=== PATIENT | male | born 1975 | race Caucasian/White ===

== ENCOUNTER 2016-05-03 16:35 | Emergency (ER) | payer OTHER ==
[2016-05-03 18:58] LABS: Basophils % (Auto) 0.9 % (0.0-1.8); Eosinophils % (Auto) 1.5 % (0.0-4.3); Hematocrit 44.1 % (35.5-45.6); Hemoglobin 14.7 gm/dl (11.8-15.2); Mean Corpuscular HGB Conc 34 % (32-34); Mean Corpuscular Hemoglobin 32 pg (28-32); Mean Corpuscular Volume 96 fl (84-94); Platelet Count 320 K/mm3 (140-440); Red Blood Count 4.59 M/mm3 (3.65-5.03); Red Cell Distribution Width 13.2 % (13.2-15.2); White Blood Count 9.8 K/mm3 (4.5-11.0)
[2016-05-03 19:10] LABS: Bilirubin,Urine NEG (Negative); Blood,Urine NEG (Negative); Ketones,Urine 20 mg/dL (Negative); Leukocyte Esterase,Urine NEG (Negative); Mucus,Urine FEW /HPF; Nitrite,Urine NEG (Negative); Protein,Urine <15 mg/dL mg/dL (Negative); Urobilinogen,Urine < 2.0 mg/dL (<2.0)
[2016-05-03 19:14] LABS: Anion Gap 24 mmol/L; B-Hydroxybutyrate 25.1 mg/dL (0.2-2.8); BUN/Creatinine Ratio 38.33; Blood Urea Nitrogen 23 mg/dL (9-20); Carbon Dioxide 23 mmol/L (22-30); Chloride 88.3 mmol/L (98-107); Glucose 484 mg/dL (75-100); Potassium 4.1 mmol/L (3.6-5.0); Sodium 131 mmol/L (137-145)
[2016-05-03] MEDS ORDERED: NACL 0.9% 1000 ML 1,000 ML IV ONE ×2 (20:29→21:46)
[2016-05-03] MEDS ORDERED: TORADOL IV ONE (20:48)
[2016-05-03 23:02] VITALS: BP 109/71
--- NOTE | 2016-05-03 23:22 | Emergency Department Report ---
ED General Adult HPI - General Chief complaint: Hyperglycemia Stated complaint: KNEE PAIN Time Seen by Provider: 05/03/16 20:28 Source: patient Mode of arrival: Ambulatory Limitations: No Limitations - History of Present Illness Initial comments: 41 yo male with a past medical history insulin-dependent diabetes presents to the hospital complains of bilateral leg pain and increased thirst. Patient states he was placed on insulin one year ago denies taking pills. He only takes his insulin when he feels a certain way and does not take it daily. Patient states he doesn't know what he supposed to be taking. He complains of pain to bilateral knees and also tingling and pain sensation to bilateral feet. Pain rated 8/ 10 in intensity and worsened movement. No reports of nausea, vomiting, abdominal pain, or fever. Severity scale (0 -10): 0 - Related Data Previous Rx's Medication Instructions Recorded Last Taken Type Blood-Glucose Meter [Relion 1 each MC PRN #1 kit 05/03/16 Unknown Rx All-in-One] Ibuprofen [Motrin] 400 mg PO Q8H PRN #30 tablet 05/03/16 Unknown Rx Insulin NPH Hum/Reg Insulin Hm 20 unit SQ BID 30 Days 05/03/16 Unknown Rx [Relion Novolin 70-30 Vial] traMADol [Ultram 50 MG tab] 50 mg PO Q6HR PRN #20 tablet 05/03/16 Unknown Rx Allergies Allergy/AdvReac Type Severity Reaction Status Date / Time No Known Allergies Allergy Unverified 05/03/16 18:16 ED Review of Systems ROS: Stated complaint: KNEE PAIN Other details as noted in HPI Comment: All other systems reviewed and negative Other: Constitutional: No fevers chills Eyes: No eye pain visual changes ENT: No ear pain or throat pain Neck: Denies pain Respiratory: Denies cough wheezing shortness of breath Cardiovascular: Denies chest pain, palpitations, syncope GI: Denies abdominal pain, nausea, vomiting, diarrhea : Denies dysuria Musculoskeletal: As per HPI Skin: Denies rash, lesions, erythema Neurologic: Denies headache, numbness, weakness Psychiatric: Denies suicidal ideation, hallucinations ED Past Medical Hx - Past Medical History Hx Diabetes: Yes - Surgical History Past Surgical History?: No - Social History Smoking Status: Former Smoker Substance Use Type: None - Medications Home Medications: Home Medications Medication Instructions Recorded Confirmed Last Taken Type Blood-Glucose Meter [Relion 1 each MC PRN #1 kit 05/03/16 Unknown Rx All-in-One] Ibuprofen [Motrin] 400 mg PO Q8H PRN #30 tablet 05/03/16 Unknown Rx Insulin NPH Hum/Reg Insulin Hm 20 unit SQ BID 30 Days 05/03/16 Unknown Rx [Relion Novolin 70-30 Vial] traMADol [Ultram 50 MG tab] 50 mg PO Q6HR PRN #20 tablet 05/03/16 Unknown Rx ED Physical Exam - General Limitations: No Limitations - Other Other exam information: General: No limitations, patient is alert in no acute distress Head exam: Atraumatic, normocephalic Eyes exam: Normal appearance, pupils equal reactive to light, extraocular movements intact ENT: Moist mucous membrane, normal oropharynx Neck exam: Normal inspection, full range of motion Respiratory exam: Clear to auscultation bilateral, no wheezes, rales, crackles Cardiovascular: Normal rate and rhythm, normal heart sounds Abdomen: Soft, nondistended, and nontender, with normal bowel sounds, no rebound, or guarding Extremity: Full range of motion normal inspection no deformity. Mild discomfort with bending knees Back: Normal Inspection, full range of motion, no tenderness Neurologic: Alert, oriented x3, cranial nerves intact, no motor or sensory deficit Psychiatric: normal affect, normal mood Skin: Warm, dry, intact ED Course Vital Signs 05/03/16 05/03/16 05/03/16 18:04 20:36 22:01 Temperature 98.7 F Pulse Rate 113 H 97 H Respiratory 20 20 18 Rate Blood Pressure 107/73 Blood Pressure 108/78 [Left] O2 Sat by Pulse 97 97 Oximetry 05/03/16 22:59 Temperature Pulse Rate 86 Respiratory 18 Rate Blood Pressure Blood Pressure 109/71 [Left] O2 Sat by Pulse 97 Oximetry - Reevaluation(s) Reevaluation #1: 05/03/16 23:22 Patient received regular insulin 8 units and 2 L of normal saline with reduction in blood glucose. Glucose was in the 300s in the ED prior to administrating IV treatment. Toradol order for pain ED Medical Decision Making - Lab Data Result diagrams: 05/03/16 18:40 05/03/16 18:40 Lab Results 05/03/16 05/03/16 05/03/16 Range/Units 18:11 18:30 18:40 WBC 9.8 (4.5-11.0) K/mm3 RBC 4.59 (3.65-5.03) M/mm3 Hgb 14.7 (11.8-15.2) gm/dl Hct 44.1 (35.5-45.6) % MCV 96 H (84-94) fl MCH 32 (28-32) pg MCHC 34 (32-34) % RDW 13.2 (13.2-15.2) % Plt Count 320 (140-440) K/mm3 Lymph % (Auto) 20.7 (13.4-35.0) % Butts % (Auto) 7.1 (0.0-7.3) % Eos % (Auto) 1.5 (0.0-4.3) % Baso % (Auto) 0.9 (0.0-1.8) % Lymph # 2.0 (1.2-5.4) K/mm3 Butts # 0.7 (0.0-0.8) K/mm3 Eos # 0.1 (0.0-0.4) K/mm3 Baso # 0.1 (0.0-0.1) K/mm3 Seg Neutrophils % 69.8 (40.0-70.0) % Seg Neutrophils # 6.8 (1.8-7.7) K/mm3 VBG pH (7.320-7.420) Sodium (137-145) mmol/L Potassium (3.6-5.0) mmol/L Chloride (98-107) mmol/L Carbon Dioxide (22-30) mmol/L Anion Gap mmol/L BUN (9-20) mg/dL Creatinine (0.8-1.5) mg/dL Estimated GFR ml/min BUN/Creatinine Ratio % Glucose (75-100) mg/dL POC Glucose 427 H (70-105) Calcium (8.4-10.2) mg/dL Urine Color Straw (Yellow) Urine Turbidity Clear (Clear) Urine pH 6.0 (5.0-7.0) Ur Specific [place] 1.030 (1.003-1.030) Urine Protein <15 mg/dl (Negative) mg/dL Urine Glucose (UA) >=500 (Negative) mg/dL Urine Ketones 20 (Negative) mg/dL Urine Blood Neg (Negative) Urine Nitrite Neg (Negative) Urine Bilirubin Neg (Negative) Urine Urobilinogen < 2.0 (<2.0) mg/dL Ur Leukocyte Esterase Neg (Negative) Urine WBC (Auto) 0.0 (0.0-6.0) /HPF Urine RBC (Auto) 3.0 (0.0-6.0) /HPF Urine Mucus Few /HPF Ketones (0.2-2.8) mg/dL 05/03/16 05/03/16 05/03/16 Range/Units 18:40 18:40 20:46 WBC (4.5-11.0) K/mm3 RBC (3.65-5.03) M/mm3 Hgb (11.8-15.2) gm/dl Hct (35.5-45.6) % MCV (84-94) fl MCH (28-32) pg MCHC (32-34) % RDW (13.2-15.2) % Plt Count (140-440) K/mm3 Lymph % (Auto) (13.4-35.0) % Butts % (Auto) (0.0-7.3) % Eos % (Auto) (0.0-4.3) % Baso % (Auto) (0.0-1.8) % Lymph # (1.2-5.4) K/mm3 Butts # (0.0-0.8) K/mm3 Eos # (0.0-0.4) K/mm3 Baso # (0.0-0.1) K/mm3 Seg Neutrophils % (40.0-70.0) % Seg Neutrophils # (1.8-7.7) K/mm3 VBG pH 7.404 (7.320-7.420) Sodium 131 L (137-145) mmol/L Potassium 4.1 (3.6-5.0) mmol/L Chloride 88.3 L (98-107) mmol/L Carbon Dioxide 23 (22-30) mmol/L Anion Gap 24 mmol/L BUN 23 H (9-20) mg/dL Creatinine 0.6 L (0.8-1.5) mg/dL Estimated GFR > 60 ml/min BUN/Creatinine Ratio 38.33 % Glucose 484 H (75-100) mg/dL POC Glucose 369 H (70-105) Calcium 9.0 (8.4-10.2) mg/dL Urine Color (Yellow) Urine Turbidity (Clear) Urine pH (5.0-7.0) Ur Specific [place] (1.003-1.030) Urine Protein (Negative) mg/dL Urine Glucose (UA) (Negative) mg/dL Urine Ketones (Negative) mg/dL Urine Blood (Negative) Urine Nitrite (Negative) Urine Bilirubin (Negative) Urine Urobilinogen (<2.0) mg/dL Ur Leukocyte Esterase (Negative) Urine WBC (Auto) (0.0-6.0) /HPF Urine RBC (Auto) (0.0-6.0) /HPF Urine Mucus /HPF Ketones 25.1 H (0.2-2.8) mg/dL 05/03/16 05/03/16 Range/Units 21:56 23:08 WBC (4.5-11.0) K/mm3 RBC (3.65-5.03) M/mm3 Hgb (11.8-15.2) gm/dl Hct (35.5-45.6) % MCV (84-94) fl MCH (28-32) pg MCHC (32-34) % RDW (13.2-15.2) % Plt Count (140-440) K/mm3 Lymph % (Auto) (13.4-35.0) % Butts % (Auto) (0.0-7.3) % Eos % (Auto) (0.0-4.3) % Baso % (Auto) (0.0-1.8) % Lymph # (1.2-5.4) K/mm3 Butts # (0.0-0.8) K/mm3 Eos # (0.0-0.4) K/mm3 Baso # (0.0-0.1) K/mm3 Seg Neutrophils % (40.0-70.0) % Seg Neutrophils # (1.8-7.7) K/mm3 VBG pH (7.320-7.420) Sodium (137-145) mmol/L Potassium (3.6-5.0) mmol/L Chloride (98-107) mmol/L Carbon Dioxide (22-30) mmol/L Anion Gap mmol/L BUN (9-20) mg/dL Creatinine (0.8-1.5) mg/dL Estimated GFR ml/min BUN/Creatinine Ratio % Glucose (75-100) mg/dL POC Glucose 217 H 208 H (70-105) Calcium (8.4-10.2) mg/dL Urine Color (Yellow) Urine Turbidity (Clear) Urine pH (5.0-7.0) Ur Specific [place] (1.003-1.030) Urine Protein (Negative) mg/dL Urine Glucose (UA) (Negative) mg/dL Urine Ketones (Negative) mg/dL Urine Blood (Negative) Urine Nitrite (Negative) Urine Bilirubin (Negative) Urine Urobilinogen (<2.0) mg/dL Ur Leukocyte Esterase (Negative) Urine WBC (Auto) (0.0-6.0) /HPF Urine RBC (Auto) (0.0-6.0) /HPF Urine Mucus /HPF Ketones (0.2-2.8) mg/dL - Medical Decision Making I suspect the patient has diabetic neuropathy so she will uncontrolled diabetes due to noncompliance. Patient has elevated ketones but does not have any signs of acidosis as indicated by normal bicarbonate venous pH. Patient also denies any GI symptoms or change in mental status. Hospitalist Dr. Cadet/Hosp consultation and recommends Relion ([employer]) 70/20 20units with breakfast and 20 units with dinner to start his diabetes treatment and to follow-up with a primary care doctor for further adjustments in diabetes medication. - Differential Diagnosis DKA, uncontrolled diabetes, noncompliance, neuropathy Critical Care Time: No Critical care attestation.: If time is entered above; I have spent that time in minutes in the direct care of this critically ill patient, excluding procedure time. ED Disposition Clinical Impression: Uncontrolled diabetes mellitus, Diabetic neuropathy, Noncompliance with medication regimen Disposition: DISCHARGED TO HOME OR SELFCARE Is pt being admited?: No Does the pt Need Aspirin: No Condition: Stable Instructions: Diabetes Mellitus Type 2 in Adults (ED), Diabetic Neuropathy (ED) Additional Instructions: Take the insulin as prescribed and continue to monitor your sugars. THe insulin Relion can be obtained for [employer] even without a prescription for further refills. You need further workup and evaluation by your primary care doctor for further insulin and medication adjustment. Please return if symptoms worsen as indicated by discharge instructions Prescriptions: Blood-Glucose Meter [Relion All-in-One] 1 each PRN #1 kit Ibuprofen [Motrin] 400 mg PO Q8H PRN #30 tablet PRN Reason: pain Insulin NPH Hum/Reg Insulin Hm [Relion Novolin 70-30 Vial] 20 unit SQ BID 30 Days traMADol [Ultram 50 MG tab] 50 mg PO Q6HR PRN #20 tablet PRN Reason: Pain Referrals: [facility] [Provider Group] - 3-5 Days [facility] [Outside] - 3-5 Days Time of Disposition: 23:53
== END 2016-05-04 00:09 | disposition home or self-care (01) ==
LOC: ED 16:35
DX: E11.40 Type 2 diabetes mellitus with diabetic neuropathy, unspecified (principal); Z91.14 Patient's other noncompliance with medication regimen; Z79.4 Long term (current) use of insulin; Z87.891 Personal history of nicotine dependence
CPT/HCPCS: 36415; 80048; 81001; 82010; 82805; 82962; 85025; 96361; 96374; 96375; 99283; J1885; J7030; J1815

== ENCOUNTER 2016-09-07 13:25 | Inpatient (IN) | payer OTHER ==
--- NOTE | 2016-09-07 15:12 | Emergency Department Report ---
Entered by STACIE PINZON, acting as scribe for KAE CULLEN NP. Chief Complaint: Chest Pain Stated Complaint: BP HIGH Time Seen by Provider: 09/07/16 15:02 - HPI History of Present Illness: Pt is non-toxic, non ill appearing, in no acute distress with c/o chest pain for 2 days. Describes CP has something stuck. Denies CP radiation. Pt denies abd pain, fever, chills, and n/v. Patient has mild SOB. Patient reports right foot tingling. - ROS Review of Systems: Reports chest pain, mild SOB, and right foot tingling. Denies nausea and vomiting. Denies abdominal pain. - Exam Vital Signs: Vital Signs 09/07/16 14:39 Temperature 97.5 F L Pulse Rate 95 H Respiratory 16 Rate Blood Pressure 94/65 O2 Sat by Pulse 99 Oximetry Physical Exam: Constitutional: Non toxic appearing, NAD. Cardiovascular: Normal rate and rhythm with normal S1/S2 sounds. Chest pain is not reproducible with palpation. No edema. Respiratory: No respiratory distress. Lung sounds clear to auscultation bilaterally. Abdomen: Abdomen is non-distended, soft with no tenderness to palpation in all quadrants. No abdominal bruit. No epigastric pain. MSE screening note: Focused history and physical exam performed. Due to findings the following was ordered: CBC, BMP, CCK, Troponin, Chest X-ray, EKG, and UA was ordered on patient. ED Disposition for MSE Condition: Stable This documentation as recorded by the scribe,STACIE PINZON,accurately reflects the service I personally performed and the decisions made by SUBHASH chisholm MARTIN, RHODA.
[2016-09-07 15:54] LABS: Basophils % (Auto) 0.4 % (0.0-1.8); Eosinophils % (Auto) 0.5 % (0.0-4.3); Hematocrit 41.6 % (35.5-45.6); Hemoglobin 13.9 gm/dl (11.8-15.2); Mean Corpuscular HGB Conc 34 % (32-34); Mean Corpuscular Hemoglobin 32 pg (28-32); Mean Corpuscular Volume 97 fl (84-94); Platelet Count 344 K/mm3 (140-440); Red Blood Count 4.32 M/mm3 (3.65-5.03); Red Cell Distribution Width 13.2 % (13.2-15.2); White Blood Count 9.2 K/mm3 (4.5-11.0)
[2016-09-07 16:02] LABS: Anion Gap 20 mmol/L; Blood Urea Nitrogen 9 mg/dL (9-20); Calcium 8.6 mg/dL (8.4-10.2); Carbon Dioxide 22 mmol/L (22-30); Chloride 92.3 mmol/L (98-107); Creatine Kinase 18 units/L (55-170); Potassium 3.3 mmol/L (3.6-5.0); Sodium 131 mmol/L (137-145)
--- NOTE | 2016-09-07 16:02 | XRay Report ---
ROUTINE CHEST, TWO VIEWS: HISTORY: chest pain. The trachea, heart, mediastinal contour, lung arteaga and bony thorax are unremarkable. IMPRESSION: Unremarkable chest x-ray.
[2016-09-07 16:04] LABS: Creatine Kinase MB < 1.0 ng/mL (0.0-4.0)
[2016-09-07 16:10] LABS: Glucose 557 mg/dL (75-100)
[2016-09-08] MEDS ORDERED: K-DUR PO ONE (07:10)
--- NOTE | 2016-09-08 07:10 | Emergency Department Report ---
ED Chest Pain HPI - General Chief Complaint: Chest Pain Stated Complaint: BP HIGH Time Seen by Provider: 09/08/16 06:45 Source: patient Mode of arrival: Ambulatory Limitations: No Limitations - History of Present Illness Initial Comments: 41-year-old male presents to the emergency department with complaint of a few days of midsternal nonradiating chest pressure. Sometimes he says it feels as if he is drinking something real fast and gets stuck. He has some mild nausea without vomiting and occasional shortness of breath. He denies any fever, back pain, diaphoresis. He has a past medical history of diabetes and says he used to be on insulin but recently his primary care physician stopped him off both insulin and any pills and he is not currently taking anything for his diabetes. No recent travel or sick contacts at home. He denies any tobacco abuse or illicit drug use. He denies any history of ME, CVA, PE/DVT. Severity scale (0 -10): 10 - Related Data Previous Rx's Medication Instructions Recorded Last Taken Type Blood-Glucose Meter [Relion 1 each MC PRN #1 kit 05/03/16 Unknown Rx All-in-One] Ibuprofen [Motrin] 400 mg PO Q8H PRN #30 tablet 05/03/16 Unknown Rx Insulin NPH Hum/Reg Insulin Hm 20 unit SQ BID 30 Days 05/03/16 Unknown Rx [Relion Novolin 70-30 Vial] traMADol [Ultram 50 MG tab] 50 mg PO Q6HR PRN #20 tablet 05/03/16 Unknown Rx Allergies Allergy/AdvReac Type Severity Reaction Status Date / Time No Known Allergies Allergy Unverified 05/03/16 18:16 Heart Score - HEART Score History: Moderately suspicious EKG: Normal Age: < 45 Risk factors: 1-2 risk factors Troponin: < normal limit HEART Score: 2 - Critical Actions Critical Actions: 0-3 pts:0.9-1.7%risk of adverse cardiac event.Candidate for discharge ED Review of Systems ROS: Stated complaint: BP HIGH Other details as noted in HPI Comment: All other systems reviewed and negative Constitutional: denies: chills, fever Eyes: denies: eye pain, eye discharge, vision change ENT: denies: ear pain, throat pain Respiratory: shortness of breath. denies: cough Cardiovascular: chest pain. denies: palpitations Gastrointestinal: nausea. denies: abdominal pain, vomiting Genitourinary: denies: urgency, dysuria Musculoskeletal: denies: back pain, joint swelling, arthralgia Skin: denies: rash, lesions Neurological: denies: headache, weakness, paresthesias ED Past Medical Hx - Past Medical History Previous Medical History?: Yes Hx Diabetes: Yes - Surgical History Past Surgical History?: No - Social History Smoking Status: Never Smoker Substance Use Type: None - Medications Home Medications: Home Medications Medication Instructions Recorded Confirmed Last Taken Type Blood-Glucose Meter [Relion 1 each MC PRN #1 kit 05/03/16 Unknown Rx All-in-One] Ibuprofen [Motrin] 400 mg PO Q8H PRN #30 tablet 05/03/16 Unknown Rx Insulin NPH Hum/Reg Insulin Hm 20 unit SQ BID 30 Days 05/03/16 Unknown Rx [Relion Novolin 70-30 Vial] traMADol [Ultram 50 MG tab] 50 mg PO Q6HR PRN #20 tablet 05/03/16 Unknown Rx ED Physical Exam - General Limitations: No Limitations - Other Other exam information: GENERAL: Patient is awake and alert. Very thin or cachectic appearance. HEENT: Normocephalic. Atraumatic. Extraocular motions are intact. Patient has moist mucous membranes. Pupils equal reactive to light bilaterally. NECK: Supple. Trachea is midline. CHEST/LUNGS: Clear to auscultation. There is no respiratory distress noted. Chest pain is not reproducible to palpation of chest wall. HEART/CARDIOVASCULAR: Regular. There is no tachycardia. There is no gallop rub or murmur. ABDOMEN: Abdomen is soft, nontender. Patient has normal bowel sounds. There is no abdominal distention. SKIN: Skin is warm and dry. NEURO: The patient is awake, alert, and oriented. The patient is cooperative. The patient has no focal neurologic deficits. The patient has normal speech. MUSCULOSKELETAL: There is no tenderness or deformity. There is no limitation range of motion. There is no evidence of acute injury. ED Course Vital Signs 09/07/16 09/08/16 09/08/16 14:39 02:53 07:26 Temperature 97.5 F L 97.6 F Pulse Rate 95 H 88 Respiratory 16 18 Rate Blood Pressure 94/65 107/74 Blood Pressure [Left] O2 Sat by Pulse 99 99 100 Oximetry 09/08/16 09/08/1617 07:31 07:33 07:35 Temperature Pulse Rate 84 83 85 Respiratory 12 15 13 Rate Blood Pressure 107/70 Blood Pressure [Left] O2 Sat by Pulse 99 99 98 Oximetry 09/08/16 09/08/16 07:45 07:46 Temperature Pulse Rate 83 Respiratory 18 18 Rate Blood Pressure Blood Pressure 107/70 [Left] O2 Sat by Pulse 99 99 Oximetry LEE score - Lee Score Age > 65: (0) No Aspirin use within the Past 7 Days: (0) No 3 or more CAD Risk Factors: (1) Yes 2 or more Angina events in past 24 hrs: (1) Yes Known CAD with more than 50% Stenosis: (0) No Elevated Cardiac Markers: (0) No ST Deviation Greater than 0.5mm: (0) No LEE Score: 2 ED Medical Decision Making - Lab Data Result diagrams: 09/07/16 15:17 09/07/16 15:17 - EKG Data -: EKG Interpreted by Me EKG shows normal: sinus rhythm, axis, intervals, QRS complexes, ST-T waves Rate: normal - EKG Data When compared to previous EKG there are: previous EKG unavailable Interpretation: normal EKG - Radiology Data Radiology results: image reviewed interpreted by me: Chest x-ray did not show any acute process. Heart is normal shape and size. No effusions. No pneumothorax. No signs of pneumonia seen. - Medical Decision Making 41-year-old male presents with a few days of midsternal chest pain. He also presents with very elevated blood sugar with a level of about 550. This may be secondary to the fact that he was recently stopped from his diabetes medications. He does not appear to be in diabetic ketoacidosis or HHNK. He was given IV insulin to bring it down. So far is negative troponins 2 and a negative d-dimer. However with his uncontrolled diabetes and his comorbidities and the fact that he has not had a full cardiac workup or stress test ever, the patient will be admitted to the hospital for further evaluation and treatment. He has been accepted for admission by the hospitalist service and the nurse practitioner, Vivien. - Differential Diagnosis DKA, HHNK, ME, PE, pneumonia Critical Care Time: No Critical care attestation.: If time is entered above; I have spent that time in minutes in the direct care of this critically ill patient, excluding procedure time. ED Disposition Clinical Impression: Hyperglycemia, Hypokalemia Uncontrolled diabetes mellitus Qualifiers: Diabetes mellitus type: type 1 Diabetes mellitus complication status: with hyperglycemia Qualified Code(s): E10.65 - Type 1 diabetes mellitus with hyperglycemia Chest pain Qualifiers: Chest pain type: unspecified Qualified Code(s): R07.9 - Chest pain, unspecified Disposition: OP ADMIT IP TO THIS HOSP Is pt being admited?: Yes Does the pt Need Aspirin: Yes Condition: Stable Instructions: Diabetes Mellitus Type 2 in Adults (ED), Chest Pain (ED) Referrals: PRIMARY CARE, [Primary Care Provider] - 3-5 Days Time of Disposition: 08:55
[2016-09-08 08:10] LABS: Bilirubin,Urine NEG (Negative); Blood,Urine NEG (Negative); Ketones,Urine 20 mg/dL (Negative); Leukocyte Esterase,Urine NEG (Negative); Mucus,Urine FEW /HPF; Nitrite,Urine NEG (Negative); Protein,Urine <15 mg/dL mg/dL (Negative); Urobilinogen,Urine < 2.0 mg/dL (<2.0); WBC,Urine < 1.0 /HPF (0.0-6.0)
[2016-09-08 08:18] LABS: RBC,Urine < 1.0 /HPF (0.0-6.0)
[2016-09-08] MEDS ORDERED: DULCOLAX PR PRN (08:52)
[2016-09-08] MEDS ORDERED: MILK OF MAGNESIA PO PRN (08:52)
[2016-09-08] MEDS ORDERED: D50W (25GM) IV PRN (08:52)
[2016-09-08] MEDS ORDERED: TYLENOL PO PRN (08:52)
[2016-09-08] MEDS ORDERED: ZOFRAN IV PRN (08:52)
[2016-09-08] MEDS ORDERED: BABY ASPIRIN PO ONE (08:55)
--- NOTE | 2016-09-08 08:57 | Admit Criteria Form ---
Admission Criteria Documentation: DIABETES Clinical Indications for Admission to Inpatient Care (Place 'X' for any and all applicable criteria): Admission is indicated by presence of ALL (if I & II) or ANY ONE (if III or IV) of the following (1)(2)(3)(4): [X]I. Diabetes is uncontrolled as indicated by ANY ONE of the following: [ ]a) Diabetic ketoacidosis as indicated by ALL of the following (8): [ ]i) Hyperglycemia (eg, plasma glucose greater than 200 mg/ dL (11.1 mmol/L)) [ ]ii) Acidosis (eg, arterial pH less than 7.30, serum bicarbonate level less than 15 mEq/L (mmol/L)) [ ]iii) Moderate ketonuria or ketonemia [ ]b) Hyperglycemic hyperosmolar state as indicated by ALL of the following(9)(10): [ ]i) Neurologic dysfunction (eg, stupor, coma, hemiparesis , seizure)(13) [ ]ii) Plasma glucose greater than 600 mg/dL (33.3 mmol/L) [ ]iii) Serum osmolality greater than 320 mOsm/kg (mmol/kg) [X]c) Severe signs or symptoms secondary to hyperglycemia indicated by ANY ONE of the following: [ ]i) Altered mental status(10) [ ]ii) Significant hypovolemia or dehydration [ ]iii) Intractable nausea or vomiting [ ]iv) Unexplained fever or severe infection [X]v) Severe electrolyte abnormality (eg, hypokalemia, hyperkalemia, hypernatremia) [ ]II. Management at other levels of care (Also use Diabetes: Observation Care as appropriate) is not feasible because of ANY ONE of the following: [ ]a) Condition was not adequately corrected with treatment at other levels of care. [ ]b) Treatment at other levels of care is not appropriate because of condition severity (eg, hyperosmolar coma). [ ]III. Contraindications and/or Inappropriate clinical situations for Observational Care in patients with Diabetes, when ANY ONE of the following is required: [ ]a) Patient require specific diagnostic workup or therapeutic intervention 22 [ ]b) Patient with abnormal vital signs or altered mental status 23 [ ]IV. General contraindications and/or Inappropriate clinical situations for Observational Care in patients with Diabetes, when ANY ONE of the following is required: [ ]a) Prediction of prolongation of LOS based on ANY ONE of the following may be considered as a contraindication for observational care 2, 3, 4, 5, 6, 7, 8, 9, 10, 11 [ ]i) Age > 65 yrs. [ ]ii) Patient arriving by ambulance [ ]iii) Patient with high acuity [ ]iv) Patient requiring vital sign monitoring [ ]v) Patient on IV medication [ ]b) Systolic blood pressures 180mmHg 3,12 [ ]c) Patient with altered mental status including delirium and other alteration of consciousness, (3) [ ]d) Patient whose discharge disposition will be to a senior care home or rehabilitation home should not be managed in Emergency Department Observation Unit. CMS rule requires 3 days hospital stay before such placement.3,13 [ ]e) Patient with failure to thrive due to broad array of etiologies 3,16,17 [ ]f) Inability to ambulate 3,14 Extended stay beyond goal length of stay may be needed for(3)(20): [ ]a) Treatment of precipitating causes [ ]b) Development of hypoglycemia [ ]c) Complications of treatment [ ]d) Complications of decompensated diabetes (eg, acute gastric dilatation, persistent metabolic or neurologic derangement) [ ]e) Active Comorbidities [ ]f) Older patients( 65 years or older) The original [employer] content created by [employer] has been revised. The portions of the content which have been revised are identified through the use of italic text or in bold,and [facility] has neither reviewed nor approved the modified material. All other unmodified content is copyright [facility] [facility]. Please see references footnoted in the original [employer] [facility] [employer] edition 2016 Admission Criteria Met: Yes
--- NOTE | 2016-09-08 09:09 | History and Physical Report ---
History of Present Illness Date of examination: 09/08/16 Date of admission: 09/08/16 Chief complaint: Chest pains and Hyperglycemia History of present illness: A 41-year-old male presented to the ED from home with complaint of chest pain. Patient reported that symptoms started about a week ago, off and on, and got worse yesterday with chest tightness. Pt described the pain as something stuck on his chest and rate it 8 out of 10 on a scale of 0/10. Patient denies fever , nausea, vomiting, abdomen pain, syncopal, diarrhea, constipation. Patient also complained of having weakness to his lower extremities and tingling and burning to his feet since he was diagnosed with diabetes. Patient stated his only past medical history is diabetes and no surgeries. She also denies tobacco and alcohol use Past History Past Medical History: diabetes. denies: hypertension Past Surgical History: No surgical history Social history: single, Lives alone, full code. denies: smoking, alcohol abuse , prescription drug abuse, IV drug use Family history: diabetes, hypertension Medications and Allergies Allergies Allergy/AdvReac Type Severity Reaction Status Date / Time No Known Allergies Allergy Unverified 05/03/16 18:16 Home Medications Medication Instructions Recorded Confirmed Last Taken Type No Known Home Medications [No 09/08/16 09/08/16 Unknown History Reported Home Medications] Active Meds: Active Medications Acetaminophen (Tylenol) 650 mg PO Q4H PRN PRN Reason: Pain MILD(1-3)/Fever >100.5/POLLOCK Bisacodyl (Dulcolax) 10 mg [place] QDAY PRN PRN Reason: Constipation unrelieved by MOM Dextrose (D50w (25gm)) 50 ml IV PRN PRN PRN Reason: Hypoglycemia Sodium Chloride (Nacl 0.9% 1000 Ml) 1,000 mls @ 100 mls/hr IV DIRECT SHANNAN Magnesium Hydroxide (Milk Of Magnesia) 30 ml PO Q4H PRN PRN Reason: Constipation Ondansetron HCl (Zofran) 4 mg IV Q4H PRN PRN Reason: Nausea And Vomiting Review of Systems Constitutional: weight loss, no weight gain, no fever, no chills, no sweats Ears, nose, mouth and throat: no nasal congestion, no nasal discharge Cardiovascular: chest pain, no palpitations, no lightheadedness, no shortness of breath Respiratory: no cough with sputum, no congestion, no wheezing Gastrointestinal: no abdominal pain, no nausea, no vomiting, no diarrhea, no constipation Genitourinary Male: no dysuria, no hematuria Rectal: no incontinence Musculoskeletal: no neck pain, no low back pain Integumentary: no rash, no lesions Neurological: no head injury, no seizures, no syncope Psychiatric: no anxiety, no suicidal ideation, no depression Endocrine: polydipsia, polyuria, no fatigue Exam - Constitutional Vitals: Temp Pulse Resp BP Pulse Ox 97.6 F 83 18 107/70 99 09/08/16 02:53 09/08/16 07:45 09/08/16 07:46 09/08/16 07:45 09/08/16 07:46 General appearance: Present: no acute distress, well-nourished - EENT Eyes: Present: PERRL ENT: hearing intact, clear oral mucosa - Neck Neck: Present: supple, normal ROM - Respiratory Respiratory effort: normal Respiratory: bilateral: CTA - Cardiovascular Rhythm: regular Heart Sounds: Present: S1 & S2. Absent: rub, click - Extremities Extremities: pulses symmetrical, No edema Peripheral Pulses: within normal limits - Abdominal General gastrointestinal: Present: soft, non-tender, non-distended, normal bowel sounds Male genitourinary: Present: normal - Integumentary Integumentary: Present: clear, warm, dry - Musculoskeletal Musculoskeletal: gait normal, strength equal bilaterally - Psychiatric Psychiatric: appropriate mood/affect, intact judgment & insight - Neurologic Neurologic: CNII-XII intact, moves all extremities - Allied Health Allied health notes reviewed: nursing Results - Labs CBC & Chem 7: 09/07/16 15:17 09/07/16 15:17 Labs: Abnormal lab results 09/07/16 09/07/16 09/07/16 Range/Units 07:25 15:17 15:17 MCV 97 H (84-94) fl Seg Neutrophils % 76.9 H (40.0-70.0) % VBG pH (7.320-7.420) Sodium 131 L (137-145) mmol/L Potassium 3.3 L (3.6-5.0) mmol/L Chloride 92.3 L (98-107) mmol/L Creatinine 0.4 L (0.8-1.5) mg/dL Glucose 557 H* (75-100) mg/dL POC Glucose (70-105) Total Creatine Kinase 18 L (55-170) units/L CK-MB (CK-2) Rel Index 5.5 H (0-4) Ur Specific [place] 1.033 H (1.003-1.030) 09/08/16 09/08/16 Range/Units 07:12 Unknown MCV (84-94) fl Seg Neutrophils % (40.0-70.0) % VBG pH 7.451 H (7.320-7.420) Sodium (137-145) mmol/L Potassium (3.6-5.0) mmol/L Chloride (98-107) mmol/L Creatinine (0.8-1.5) mg/dL Glucose (75-100) mg/dL POC Glucose 397 H (70-105) Total Creatine Kinase (55-170) units/L CK-MB (CK-2) Rel Index (0-4) Ur Specific [place] (1.003-1.030) - Imaging and Cardiology Chest x-ray: image reviewed (Showed clear lungs) Assessment and Plan A 41-year-old male presented to the ED from home with complaint of chest pain. Patient reported that symptoms started about a week ago, off and on, and got worse yesterday with chest tightness. Pt described the pain as something stuck on his chest and rate it 8 out of 10 on a scale of 0/10. Patient denies fever , nausea, vomiting, abdomen pain, syncopal, diarrhea, constipation. Patient also complained of having weakness to his lower extremities and tingling and burning to his feet since he was diagnosed with diabetes. Patient stated his only past medical history is diabetes and no surgeries. She also denies tobacco and alcohol use. -chest pain- rule out acute coronary syndrome Serial cardiac enzymes and EKG , Lexiscan stress test echocardiogram for left ventricular function and ejection fraction , cardiology evaluation as needed Aspirin and beta blockers GILDARDO inhibitor as nitrates and statins , supportive care -DM 2-hyperosmolar nonketotic state , patient has no history of diabetes mellitus , Accu-Chek sliding scale coverage and ADA diet and insulin Check hemoglobin A1c , IV fluids , diabetic education and nutrition consult Possible diabetic nurse at the time of discharge -Diabetic neuropathy-Neurontin ordered, supportive care --Hypokalemia ;replenish per protocol and monitor levels --Moderate to severe protein calorie malnutrition Supportive care nutrition supplements --DVT prophylaxis with Lovenox
[2016-09-08] MEDS ORDERED: LEXISCAN IV ONE ×2 (10:52→10:57)
--- NOTE | 2016-09-08 12:34 | Consultation ---
History of Present Illness Consult date: 09/08/16 Requesting physician: ROSSI JARAMILLO Consult reason: chest pain History of present illness: The patient is a 41 year old male with a history of diabetes who presented with persistent substernal chest pain ongoing for the past several weeks. He states the pain is worse after eating or drinking and feels like something is getting stuck in his chest. He denies any shortness of breath, palpitations, nausea, vomiting or diaphoresis. Troponin negative x 2. Hgb A1C 14.6. Lexiscan thallium stress test done this morning was negative for ischemia but did show transient ischemic dilatation (ratio 1.28). Past History Past Medical History: diabetes Past Surgical History: No surgical history Social history: single, Lives alone, full code. denies: smoking, alcohol abuse , prescription drug abuse, IV drug use Family history: diabetes, hypertension Medications and Allergies Allergies Allergy/AdvReac Type Severity Reaction Status Date / Time No Known Allergies Allergy Unverified 05/03/16 18:16 Home Medications Medication Instructions Recorded Confirmed Last Taken Type No Known Home Medications [No 09/08/16 09/08/16 Unknown History Reported Home Medications] Active Meds: Active Medications Acetaminophen (Tylenol) 650 mg PO Q4H PRN PRN Reason: Pain MILD(1-3)/Fever >100.5/POLLOCK Bisacodyl (Dulcolax) 10 mg [place] QDAY PRN PRN Reason: Constipation unrelieved by MOM Dextrose (D50w (25gm)) 50 ml IV PRN PRN PRN Reason: Hypoglycemia Sodium Chloride (Nacl 0.9% 1000 Ml) 1,000 mls @ 100 mls/hr IV DIRECT SHANNAN Insulin Human Isoph/Insulin Regular (Novolin 70/30) 8 unit SUB-Q BIDDIAB SHANNAN Magnesium Hydroxide (Milk Of Magnesia) 30 ml PO Q4H PRN PRN Reason: Constipation Ondansetron HCl (Zofran) 4 mg IV Q4H PRN PRN Reason: Nausea And Vomiting Review of Systems Constitutional: no fever, no chills Ears, nose, mouth and throat: no nasal congestion, no nasal discharge, no sinus pressure Cardiovascular: chest pain, no palpitations Respiratory: no cough, no congestion, no wheezing Gastrointestinal: no nausea, no vomiting, no diarrhea Genitourinary Male: no dysuria, no hematuria Musculoskeletal: other (leg pain), no neck stiffness, no neck pain Integumentary: no rash, no pruritis Neurological: no headaches, no change in speech, no change in mentation Endocrine: no cold intolerance, no heat intolerance Hematologic/Lymphatic: no easy bruising, no easy bleeding Allergic/Immunologic: no urticaria, no wheezing Physical Examination Vital Signs Temp Pulse Resp BP Pulse Ox 97.5 F L 95 H 16 94/65 99 09/07/16 14:39 09/07/16 14:39 09/07/16 14:39 09/07/16 14:39 09/07/16 14:39 General appearance: no acute distress, cachectic HEENT: Positive: Normocephaly, Mucus Membranes Moist Neck: Positive: neck supple, trachea midline Cardiac: Positive: Reg Rate and Rhythm, S1/S2 Lungs: Positive: clear to auscultation Neuro: Positive: Grossly Intact Abdomen: Positive: Soft, Active Bowel Sounds. Negative: Tender Skin: Positive: Clear. Negative: Rash Extremities: Present: normal. Absent: edema Results 09/07/16 15:17 09/07/16 15:17 Lipids 09/08/16 Range/Units 09:05 Triglycerides 77 (2-149) mg/dL Cholesterol 125 (50-199) mg/dL HDL Cholesterol 32 L (40-59) mg/dL Cholesterol/HDL Ratio 3.90 % - Imaging and Cardiology Echo: pending EKG: image reviewed EKG interpretations - Telemetry EKG Rhythm: Sinus Rhythm - EKG Sinus rhythms and dysrhythmias: sinus rhythm Assessment and Plan Atypical chest pain Troponin negative x 2 No acute EKG changes Stress MPI today: no ischemia, EF 68%, TID (ratio 1.28) Await echo findings Uncontrolled diabetes Management per primary Stress MPI today showed no ischemia, EF 68%, TID (ratio 1.28). Will obtain echocardiogram. Further recommendations to follow. The patient has been seen in conjunction with Dr. Shaw who agrees with the assessment and plan of care. Thank you Dr. Jaramillo for allowing us to participate in the care of this patient.
[2016-09-08] MEDS: NACL 0.9% 1000 ML 1,000 ML IV SCH (17:33)
[2016-09-08] MEDS: NOVOLOG SUB-Q SCH (21:45)
[2016-09-09] MEDS: NACL 0.9% 1000 ML 1,000 ML IV SCH ×2 (05:42→17:54)
[2016-09-09 06:32] LABS: Basophils % (Auto) 0.6 % (0.0-1.8); Eosinophils % (Auto) 1.4 % (0.0-4.3); Mean Corpuscular HGB Conc 34 % (32-34); Mean Corpuscular Hemoglobin 32 pg (28-32); Mean Corpuscular Volume 95 fl (84-94); Platelet Count 332 K/mm3 (140-440); Red Cell Distribution Width 13.6 % (13.2-15.2); White Blood Count 9.5 K/mm3 (4.5-11.0)
[2016-09-09 06:43] LABS: Anion Gap 15 mmol/L; BUN/Creatinine Ratio 36.66; Blood Urea Nitrogen 11 mg/dL (9-20); Calcium 7.9 mg/dL (8.4-10.2); Carbon Dioxide 24 mmol/L (22-30); Chloride 101.8 mmol/L (98-107); Glucose 271 mg/dL (75-100); Potassium 3.1 mmol/L (3.6-5.0); Sodium 138 mmol/L (137-145)
--- NOTE | 2016-09-09 07:52 | Progress Note ---
Assessment and Plan Assessment and plan: --chest pain- rule out acute coronary syndrome Lexiscan stress test negative for reversible ischemia ,echocardiogram for left ventricular function and ejection fraction , continue current cardiac medications --DM 2-hyperosmolar nonketotic state , patient has no history of diabetes mellitus , Accu-Chek sliding scale coverage and ADA diet and insulin Check hemoglobin A1c , IV fluids , diabetic education and nutrition consult Possible diabetic nurse at the time of discharge --Diabetic neuropathy-Neurontin ordered, supportive care --Hypokalemia ;replenish per protocol and monitor levels --Moderate to severe protein calorie malnutrition Supportive care nutrition supplements --DVT prophylaxis with Lovenox History Interval history: Patient seen and evaluated in medical records reviewed No new events reported by the nursing staff patient scheduled for stress test today Blood sugars are reasonable control alert awake oriented 3 not in acute distress vital signs reviewed Hospitalist Physical - Constitutional Vitals: Temp Pulse Resp BP Pulse Ox 98.3 F 82 20 110/67 100 09/09/16 05:00 09/09/16 05:00 09/09/16 05:00 09/09/16 05:00 09/09/16 05:00 General appearance: Present: no acute distress, cachectic - EENT Eyes: Present: PERRL, EOM intact - Neck Neck: Present: supple, normal ROM - Respiratory Respiratory effort: normal, labored Respiratory: negative: diminished, rales, rhonchi - Cardiovascular Rhythm: regular Heart Sounds: Present: S1 & S2 - Extremities Extremities: no ischemia, pulses intact, pulses symmetrical Peripheral Pulses: within normal limits - Abdominal General gastrointestinal: soft, non-tender, non-distended, normal bowel sounds - Integumentary Integumentary: Present: clear, warm - Psychiatric Psychiatric: appropriate mood/affect, cooperative - Neurologic Neurologic: CNII-XII intact, moves all extremities Results - Labs CBC & Chem 7: 09/09/16 05:12 09/09/16 05:12 Labs: Laboratory Last Values WBC 9.5 K/mm3 (4.5-11.0) 09/09/16 05:12 RBC 4.00 M/mm3 (3.65-5.03) 09/09/16 05:12 Hgb 13.0 gm/dl (11.8-15.2) 09/09/16 05:12 Hct 38.0 % (35.5-45.6) 09/09/16 05:12 MCV 95 fl (84-94) H 09/09/16 05:12 MCH 32 pg (28-32) 09/09/16 05:12 MCHC 34 % (32-34) 09/09/16 05:12 RDW 13.6 % (13.2-15.2) 09/09/16 05:12 Plt Count 332 K/mm3 (140-440) 09/09/16 05:12 Lymph % (Auto) 26.5 % (13.4-35.0) 09/09/16 05:12 [place] % (Auto) 6.1 % (0.0-7.3) 09/09/16 05:12 Eos % (Auto) 1.4 % (0.0-4.3) 09/09/16 05:12 Baso % (Auto) 0.6 % (0.0-1.8) 09/09/16 05:12 Lymph # 2.5 K/mm3 (1.2-5.4) 09/09/16 05:12 [place] # 0.6 K/mm3 (0.0-0.8) 09/09/16 05:12 Eos # 0.1 K/mm3 (0.0-0.4) 09/09/16 05:12 Baso # 0.1 K/mm3 (0.0-0.1) 09/09/16 05:12 Seg Neutrophils % 65.4 % (40.0-70.0) 09/09/16 05:12 Seg Neutrophils # 6.2 K/mm3 (1.8-7.7) 09/09/16 05:12 D-Dimer 154.47 ng/mlDDU (0-234) 09/08/16 Unknown VBG pH 7.451 (7.320-7.420) H 09/08/16 Unknown Sodium 138 mmol/L (137-145) D 09/09/16 05:12 Potassium 3.1 mmol/L (3.6-5.0) L 09/09/16 05:12 Chloride 101.8 mmol/L (98-107) 09/09/16 05:12 Carbon Dioxide 24 mmol/L (22-30) 09/09/16 05:12 Anion Gap 15 mmol/L 09/09/16 05:12 BUN 11 mg/dL (9-20) 09/09/16 05:12 Creatinine 0.3 mg/dL (0.8-1.5) L 09/09/16 05:12 Estimated GFR > 60 ml/min 09/09/16 05:12 BUN/Creatinine Ratio 36.66 % 09/09/16 05:12 Glucose 271 mg/dL (75-100) H 09/09/16 05:12 POC Glucose 272 (70-105) H 09/08/16 21:32 Hemoglobin A1c 14.6 % (4-6) H 09/08/16 09:05 Calcium 7.9 mg/dL (8.4-10.2) L 09/09/16 05:12 Total Creatine Kinase 18 units/L (55-170) L 09/07/16 15:17 CK-MB (CK-2) < 1.0 ng/mL (0.0-4.0) 09/07/16 15:17 CK-MB (CK-2) Rel Index 5.5 (0-4) H 09/07/16 15:17 Troponin T < 0.010 ng/mL (0.00-0.029) 09/07/16 17:16 Triglycerides 77 mg/dL (2-149) 09/08/16 09:05 Cholesterol 125 mg/dL (50-199) 09/08/16 09:05 LDL Cholesterol Direct 78 mg/dL (50-130) 09/08/16 09:05 HDL Cholesterol 32 mg/dL (40-59) L 09/08/16 09:05 Cholesterol/HDL Ratio 3.90 % 09/08/16 09:05 Urine Color Straw (Yellow) 09/07/16 07:25 Urine Turbidity Clear (Clear) 09/07/16 07:25 Urine pH 7.0 (5.0-7.0) 09/07/16 07:25 Ur Specific [place] 1.033 (1.003-1.030) H 09/07/16 07:25 Urine Protein <15 mg/dl mg/dL (Negative) 09/07/16 07:25 Urine Glucose (UA) >=500 mg/dL (Negative) 09/07/16 07:25 Urine Ketones 20 mg/dL (Negative) 09/07/16 07:25 Urine Blood Neg (Negative) 09/07/16 07:25 Urine Nitrite Neg (Negative) 09/07/16 07:25 Urine Bilirubin Neg (Negative) 09/07/16 07:25 Urine Urobilinogen < 2.0 mg/dL (<2.0) 09/07/16 07:25 Ur Leukocyte Esterase Neg (Negative) 09/07/16 07:25 Urine WBC (Auto) < 1.0 /HPF (0.0-6.0) 09/07/16 07:25 Urine RBC (Auto) < 1.0 /HPF (0.0-6.0) 09/07/16 07:25 Urine Mucus Few /HPF 09/07/16 07:25
[2016-09-09] MEDS ORDERED: K-DUR PO ONE (09:00)
[2016-09-09] MEDS: NOVOLOG SUB-Q SCH ×4 (10:33→22:00)
--- NOTE | 2016-09-09 12:09 | Progress Note ---
Assessment and Plan Atypical chest pain Currently resolved Troponin negative x 2 No acute EKG changes Stress MPI yesterday: no ischemia, EF 68%, TID (ratio 1.28) Await echo findings Uncontrolled diabetes Management per primary Hypokalemia Repleted today per primary S/p stress MPI yesterday which showed no ischemia, EF 68%, TID (ratio 1.28). Await echo. Pending echo reveals no gross abnormalities, pt may discharge home from cardiology standpoint. Recommend follow up in our office with Sravanthi Chatman NP, within 2 weeks of hospital discharge ([phone]). The patient has been seen in conjunction with Dr. Shaw who agrees with the assessment and plan of care. Subjective Date of service: 09/09/16 Principal diagnosis: atypical chest pain Interval history: Pt resting comfortably, denies any cardiac complaints. VSS. States he is ready to go home. Objective Vital Signs Temp Pulse Pulse Pulse Resp BP Pulse Ox 09/09/16 05:00 98.3 F 82 82 20 110/67 100 09/09/16 02:50 87 09/09/16 01:43 98.8 F 87 87 20 90/52 100 09/08/16 22:00 18 09/08/16 20:00 98.6 F 92 H 92 H 20 103/69 100 09/08/16 16:22 98.2 F 90 90 20 105/69 97 - Physical Examination HEENT: Positive: Normocephaly, Mucus Membranes Moist Neck: Positive: neck supple, trachea midline Neuro: Positive: Grossly Intact Abdomen: Positive: Soft, Active Bowel Sounds. Negative: Tender Skin: Positive: Clear. Negative: Rash Extremities: Present: normal. Absent: edema - Labs and Meds CBC 09/09/16 Range/Units 05:12 WBC 9.5 (4.5-11.0) K/mm3 RBC 4.00 (3.65-5.03) M/mm3 Hgb 13.0 (11.8-15.2) gm/dl Hct 38.0 (35.5-45.6) % Plt Count 332 (140-440) K/mm3 Lymph # 2.5 (1.2-5.4) K/mm3 [place] # 0.6 (0.0-0.8) K/mm3 Eos # 0.1 (0.0-0.4) K/mm3 Baso # 0.1 (0.0-0.1) K/mm3 Comprehensive Metabolic Panel 09/09/16 Range/Units 05:12 Sodium 138 D (137-145) mmol/L Potassium 3.1 L (3.6-5.0) mmol/L Chloride 101.8 (98-107) mmol/L Carbon Dioxide 24 (22-30) mmol/L BUN 11 (9-20) mg/dL Creatinine 0.3 L (0.8-1.5) mg/dL Glucose 271 H (75-100) mg/dL Calcium 7.9 L (8.4-10.2) mg/dL - Imaging and Cardiology EKG: image reviewed Echo: pending - EKG Sinus rhythms and dysrhythmias: sinus rhythm
[2016-09-10] MEDS: NACL 0.9% 1000 ML 1,000 ML IV SCH (02:58)
[2016-09-10] MEDS: NOVOLOG SUB-Q SCH ×2 (08:51→12:40)
[2016-09-10] MEDS ORDERED: K-DUR PO SCH (10:00)
[2016-09-10 12:59] VITALS: BP 90/54
--- NOTE | 2016-09-10 13:09 | Discharge Summary ---
Providers - Providers Date of Admission: 09/08/16 08:52 Date of discharge: 09/10/16 Attending physician: ROSSI JARAMILLO Primary care physician: SURGICAL AIDE Hospitalization Reason for admission: chest pain/hyperglycemia Condition: Fair Pertinent studies: Echocardiogram; normal left ventricular function and ejection fraction 55-60% Nuclear stress test; negative for reversible ischemia Hemoglobin A1c; 14.6 Hospital course: 41-year-old male patient with significant past medical history of type 2 diabetes mellitus hypertension was admitted through emergency room with atypical chest pain and had severe hyper glycemia patient was initially evaluated admitted to the hospital and placed on Accu-Chek sliding scale coverage longer The patient also underwent nuclear stress tests which was negative for reversible ischemia Today he is comfortable in bed alert awake oriented, sugars are reasonably controlled [id number] evaluation physical examination done by me prior to discharge is unremarkable as detailed below Patient will be discharged home strongly advised to comply. Medications and diet At the time of discharge patient is hemodynamically and clinically stable Final diagnosis; Atypical chest pain Negative stress test Gastroesophageal reflux disease Diabetic neuropathy Type 2 diabetes mellitus Hyperosmolar nonketotic state Moderate to severe protein calorie malnutrition Disposition: DC-01 TO HOME OR SELFCARE Time spent for discharge: 31 min Core Measure Documentation - Palliative Care Palliative Care/ Comfort Measures: Not Applicable - Core Measures Any of the following diagnoses?: none Exam - Constitutional Vitals: Temp Pulse Resp BP Pulse Ox 98.5 F 97 H 16 90/54 99 09/10/16 12:57 09/10/16 12:57 09/10/16 12:57 09/10/16 12:57 09/10/16 12:57 General appearance: Present: no acute distress, well-nourished - EENT Eyes: Present: PERRL, EOM intact - Neck Neck: Present: supple, normal ROM - Respiratory Respiratory effort: normal Respiratory: negative: rales, rhonchi, wheezing - Cardiovascular Rhythm: regular Heart Sounds: Present: S1 & S2 - Extremities Extremities: no ischemia, pulses intact, pulses symmetrical Peripheral Pulses: within normal limits - Abdominal General gastrointestinal: Present: soft, non-tender, non-distended, normal bowel sounds - Integumentary Integumentary: Present: clear, warm - Musculoskeletal Musculoskeletal: strength equal bilaterally - Psychiatric Psychiatric: appropriate mood/affect, cooperative - Neurologic Neurologic: CNII-XII intact, moves all extremities Plan Activity: no restrictions Diet: diabetic Follow up with: PRIMARY CARE, [Primary Care Provider] - 3-5 Days ANA MARIA RIVAS MD [Staff Physician] - 7 Days Prescriptions: Insulin NPH/Regular [NovoLIN 70/30] 18 unit SUB-Q BIDDIAB 30 Days Insulin Regular, Human [HumuLIN R] 3 unit SQ ACHS 30 Days
== END 2016-09-10 18:08 | disposition home or self-care (01) | DRG 313 ==
LOC: ED 13:25 → 4A 09-08 08:52
PROVIDERS: ADMIT Internal Medicine; ATTEND Internal Medicine
DX: R07.89 Other chest pain (principal); E43 Unspecified severe protein-calorie malnutrition; Z68.1 Body mass index [BMI] 19.9 or less, adult; E11.65 Type 2 diabetes mellitus with hyperglycemia; E87.6 Hypokalemia; Z60.2 Problems related to living alone; Z83.3 Family history of diabetes mellitus; Z82.49 Family history of ischemic heart disease and other diseases of the circulatory system; E11.40 Type 2 diabetes mellitus with diabetic neuropathy, unspecified; K21.9 Gastro-esophageal reflux disease without esophagitis
CPT/HCPCS: 36415; 71020; 78452; 80048; 80061; 81001; 82550; 82553; 82805; 82962; 83036; 84484; 85025; 85379; 93005; 93010; 93017; 93306; 96374; A9502; J1815; J2785; J7030